=== PATIENT | female | born 1960 | race Caucasian/White ===

== ENCOUNTER 2018-05-11 22:17 | Observation (INO) | payer OTHER ==
[2018-05-11] MEDS: hydrALAzine 20 MG INJ IV (23:54)
[2018-05-12 00:03] LABS: WHITE BLOOD COUNT 10.9 10^3/ul (4.8-10.8)
[2018-05-12 00:03] LABS: BASOPHIL # 0.1 10^3/ul (0.0-0.1); BASOPHILS % 0.5 % (0.0-2.0); EOSINOPHILS # 0.3 10^3/ul (0.0-0.5); EOSINOPHILS % 2.8 % (0.0-7.0); HEMATOCRIT 37.4 % (37.0-47.0); HEMOGLOBIN 12.1 g/dl (12.0-16.0); LYMPHOCYTES # 4.4 10^3/ul (0.8-2.9); LYMPHOCYTES % 39.8 % (15.0-51.0); MEAN CORPUSCULAR HEMOGLOBIN 28.9 pg (29.0-33.0); MEAN CORPUSCULAR HGB CONC 32.4 g/dl (32.0-37.0); MEAN CORPUSCULAR VOLUME 89.3 fl (82.0-101.0); MEAN PLATELET VOLUME 11.2 fl (7.4-10.4); MONOCYTE # 0.7 10^3/ul (0.3-0.9); MONOCYTES % 6.6 % (0.0-11.0); NEUTROPHIL # 5.5 10^3/ul (1.6-7.5); NEUTROPHILS % 49.9 % (39.0-77.0); PLATELET COUNT 232 10^3/UL (140-415); RED BLOOD COUNT 4.19 10^6/ul (4.20-5.40); RED CELL DISTRIBUTION WIDTH 13.4 % (11.5-14.5)
[2018-05-12 00:04] LABS: ADD MAN DIFF? NO
[2018-05-12 00:26] LABS: ANION GAP 7 (5-13); BLOOD UREA NITROGEN 9 mg/dl (7-20); CALCIUM 9.4 mg/dl (8.4-10.2); CARBON DIOXIDE 30 mmol/L (21-31); CHLORIDE 105 mmol/L (97-110); CREATININE 0.46 mg/dl (0.44-1.00); Estimated GFR > 60 mL/min (>60); GLUCOSE 122 mg/dl (70-220); POTASSIUM 3.7 mmol/L (3.5-5.1); SODIUM 142 mmol/L (135-144)
[2018-05-12 00:36] LABS: INR 0.85; PROTIME 11.7 Sec (11.9-14.9); PT RATIO 0.9; TROPONIN-I < 0.012 ng/ml (0.000-0.120)
[2018-05-12 00:37] LABS: PARTIAL THROMBOPLASTIN TIME 29.5 Sec (23.0-35.0)
[2018-05-12] MEDS ORDERED: hydrALAzine 20 MG INJ IV (05:30)
[2018-05-12 07:08] LABS: TROPONIN-I 0.024 ng/ml (0.000-0.120)
[2018-05-12 07:11] LABS: CHOLESTEROL 229 mg/dl (100-200)
[2018-05-12 07:11] LABS: CHOL/HDL RATIO 4.3 RATIO; HDL CHOLESTEROL 53 mg/dl (37-92); LDL CHOLESTEROL,CALCULATED 137 mg/dl; TRIGLYCERIDES 196 mg/dl (0-149)
[2018-05-12] MEDS: ACETAMINOPHEN 325 MG TAB PO (08:07)
[2018-05-12] MEDS: ASPIRIN (EC) 81 MG TAB PO (08:07)
[2018-05-12 12:11] LABS: TROPONIN-I < 0.012 ng/ml (0.000-0.120)
[2018-05-12] MEDS: AMLODIPINE 10 MG TAB PO (13:33)
[2018-05-12 19:49] LABS: TROPONIN-I < 0.012 ng/ml (0.000-0.120)
[2018-05-12] MEDS: ATORVASTATIN 20 MG TAB PO (20:42)
[2018-05-12] MEDS: METOPROLOL 25 MG TAB PO (20:43)
== END 2018-05-13 01:29 | disposition home or self-care (01) ==
LOC: E/R 22:17 → TEL 05-12 02:44
DX: R07.9 Chest pain, unspecified (principal); R00.2 Palpitations; R00.0 Tachycardia, unspecified; M50.80 Other cervical disc disorders, unspecified cervical region; R55 Syncope and collapse; I10 Essential (primary) hypertension; Z79.82 Long term (current) use of aspirin
CPT/HCPCS: 70450; 70490; 71045; 80048; 80061; 84443; 84484; 85025; 85610; 85730; 93005; 93306; 99217; G0378